=== PATIENT | female | born 1955 | race American Indian/Alaskan Native ===

== ENCOUNTER 2016-09-16 15:51 | Emergency (ER) | payer OTHER ==
[2016-09-16 16:59] VITALS: BP 187/94
[2016-09-16 17:32] LABS: Basophils % (Auto) 0.7 % (0.0-1.8); Eosinophils % (Auto) 1.2 % (0.0-4.3); Hematocrit 37.9 % (30.3-42.9); Hemoglobin 11.8 gm/dl (10.1-14.3); Mean Corpuscular HGB Conc 31 % (30-34); Mean Corpuscular Hemoglobin 26 pg (28-32); Mean Corpuscular Volume 84 fl (79-97); Platelet Count 196 K/mm3 (140-440); Red Blood Count 4.53 M/mm3 (3.65-5.03); Red Cell Distribution Width 14.9 % (13.2-15.2); White Blood Count 16.4 K/mm3 (4.5-11.0)
[2016-09-16 18:21] LABS: Bilirubin,Urine NEG (Negative); Blood,Urine NEG (Negative); Ketones,Urine NEG (Negative); Leukocyte Esterase,Urine LG (Negative); Mucus,Urine 3+ /HPF; Nitrite,Urine NEG (Negative); Protein,Urine <15 mg/dL mg/dL (Negative)
[2016-09-16 18:54] LABS: Albumin 3.6 g/dL (3.9-5); Albumin/Globulin Ratio 0.7 %; Alkaline Phosphatase 90 units/L (35-129); Bilirubin,Total 0.3 mg/dL (0.1-1.2); Blood Urea Nitrogen 12 mg/dL (7-17); Calcium 9.9 mg/dL (8.4-10.2); Carbon Dioxide 19 mmol/L (22-30); Chloride 98.8 mmol/L (98-107); Glucose 113 mg/dL (65-100); Lipase 105 units/L (13-60); Sodium 136 mmol/L (137-145); Total Protein 8.6 g/dL (6.3-8.2)
[2016-09-16 19:05] LABS: Alanine Aminotransferase 31 units/L (7-56); Anion Gap 23 mmol/L; Potassium 4.8 mmol/L (3.6-5.0)
--- NOTE | 2016-09-18 14:00 | ED Elopement Review ---
ED Pt Elopement review - Results review Lab results: Laboratory Tests 09/16/16 09/16/16 09/16/16 17:21 17:21 17:41 WBC 16.4 H RBC 4.53 Hgb 11.8 Hct 37.9 MCV 84 MCH 26 L MCHC 31 RDW 14.9 Plt Count 196 Lymph % (Auto) 27.2 [place] % (Auto) 6.8 Eos % (Auto) 1.2 Baso % (Auto) 0.7 Lymph # 4.5 [place] # 1.1 H Eos # 0.2 Baso # 0.1 Seg Neutrophils % 64.1 Seg Neutrophils # 10.5 H Sodium 136 L Potassium 4.8 Chloride 98.8 Carbon Dioxide 19 L Anion Gap 23 BUN 12 Creatinine 0.8 Estimated GFR > 60 BUN/Creatinine Ratio 15.00 Glucose 113 H Calcium 9.9 Total Bilirubin 0.3 AST 30 ALT 31 Alkaline Phosphatase 90 Total Protein 8.6 H Albumin 3.6 L Albumin/Globulin Ratio 0.7 Lipase 105 H Urine Color Yellow Urine Turbidity Cloudy Urine pH 5.0 Ur Specific [place] 1.027 Urine Protein <15 mg/dl Urine Glucose (UA) Neg Urine Ketones Neg Urine Blood Neg Urine Nitrite Neg Urine Bilirubin Neg Urine Urobilinogen 4.0 Ur Leukocyte Esterase Lg Urine WBC (Auto) 28.0 H Urine RBC (Auto) 7.0 U Epithel Cells (Auto) 4.0 Urine Mucus 3+ - Call Back decision Pt Call Back Decision: Pt to F/U with PMD (possible UTI, need antibiotics. May return here if no pmd)
== END 2016-09-17 00:15 | disposition left against medical advice (07) ==
LOC: ED 15:51
DX: M54.5 Low back pain (principal); M79.659 Pain in unspecified thigh; Z53.21 Procedure and treatment not carried out due to patient leaving prior to being seen by health care provider
CPT/HCPCS: 36415; 80053; 81001; 83690; 85025

== ENCOUNTER 2018-11-29 09:43 | Inpatient (IN) | payer OTHER ==
[2018-11-29] MEDS ORDERED: ASPIRIN PO ONE (09:52)
--- NOTE | 2018-11-29 10:17 | XRay Report ---
ROUTINE CHEST, TWO VIEWS: HISTORY: chest pain. The trachea, heart, mediastinal contour, lung cornelius and bony thorax are unremarkable. IMPRESSION: Unremarkable chest x-ray.
[2018-11-29] MEDS ORDERED: SUBLIMAZE IV ONE (10:26)
[2018-11-29] MEDS ORDERED: NITRO-BID 2% TP ONE (10:26)
[2018-11-29] MEDS ORDERED: ZOFRAN IV ONE (10:26)
--- NOTE | 2018-11-29 10:31 | Emergency Department Report ---
HPI - General Chief Complaint: Chest Pain Time Seen by Provider: 11/29/18 10:19 - HPI HPI: Room 18 The patient is a 63-year-old female presenting with a chief complaint of chest pain. Patient states her symptoms began last night with substernal chest pain radiating to the left axilla. Patient says she also had pain in the left arm. Patient states she became short of breath, diaphoretic and dizzy with the chest pain. Patient denies nausea or vomiting. The patient gives her pain score 6/10. She states her last stress test occurred approximately 3-4 years ago. The patient had a cardiac catheterization performed here in March 2014 that showed mild irregularities of the LAD Location: Chest Duration: Onset last night Quality: Sharp/burning Severity:6/10 Modifying factors: [see above] Context: [see above] Mode of transportation: [not driving] ED Past Medical Hx - Past Medical History Hx Hypertension: Yes - Surgical History Past Surgical History?: No - Family History Family history: no significant - Social History Smoking Status: Never Smoker Substance Use Type: None (denies illicit drug use) - Medications Home Medications: Home Medications Medication Instructions Recorded Confirmed Last Taken Type Amlodipine Besylate 10 mg PO DAILY 04/01/14 04/01/14 04/01/14 06:00 History 10mg Terbinafine (Nf) [LamiSIL] 250 mg PO DAILY 04/01/14 04/01/14 03/31/14 15:00 History 250mg hydroCHLOROthiazide 25 mg PO DAILY 04/01/14 04/01/14 04/01/14 06:00 History [Hydrochlorothiazide] 25mg ED Review of Systems ROS: Stated complaint: CHEST PAIN Other details as noted in HPI Constitutional: diaphoresis Eyes: denies: eye pain ENT: denies: throat pain Respiratory: shortness of breath Cardiovascular: chest pain Endocrine: no symptoms reported Gastrointestinal: denies: nausea, vomiting Genitourinary: denies: dysuria Musculoskeletal: denies: back pain Neurological: denies: headache Physical Exam - Physical Exam Vital Signs: Vital Signs 11/29/18 09:53 Temperature 97.8 F Pulse Rate 59 L Respiratory 16 Rate Blood Pressure 159/69 O2 Sat by Pulse 97 Oximetry Physical Exam: GENERAL: The patient is well-developed well-nourished female lying on stretcher not appearing to be in acute distress. [] HEENT: Normocephalic. Atraumatic. Extraocular motions are intact. Patient has moist mucous membranes. NECK: Supple. Trachea midline CHEST/LUNGS: Clear to auscultation. There is no respiratory distress noted. HEART/CARDIOVASCULAR: Regular. There is no tachycardia. There is no gallop rub or murmur. ABDOMEN: Abdomen is soft, nontender. Patient has normal bowel sounds. There is no abdominal distention. SKIN: There is no rash. There is no edema. There is no diaphoresis. NEURO: The patient is awake, alert, and oriented. The patient is cooperative. The patient has normal speech MUSCULOSKELETAL: There is no evidence of acute injury. ED Course Vital Signs 11/29/18 09:53 Temperature 97.8 F Pulse Rate 59 L Respiratory 16 Rate Blood Pressure 159/69 O2 Sat by Pulse 97 Oximetry ED Medical Decision Making - Lab Data Result diagrams: 11/29/18 10:53 11/29/18 10:53 Laboratory Tests 11/29/18 11/29/18 10:53 10:53 WBC 7.7 RBC 4.41 Hgb 12.4 Hct 37.9 MCV 86 MCH 28 MCHC 33 RDW 15.9 H Plt Count 188 Lymph % (Auto) 42.3 H [place] % (Auto) 13.3 H Eos % (Auto) 1.2 Baso % (Auto) 0.4 Lymph # 3.3 [place] # 1.0 H Eos # 0.1 Baso # 0.0 Seg Neutrophils % 42.8 Seg Neutrophils # 3.3 Sodium 140 Potassium 4.2 Chloride 101.3 Carbon Dioxide 28 Anion Gap 15 BUN 13 Creatinine 0.8 Estimated GFR > 60 BUN/Creatinine Ratio 16 Glucose 105 H Calcium 9.4 Troponin T < 0.010 - EKG Data -: EKG Interpreted by Me EKG shows normal: sinus rhythm Rate: normal - EKG Data When compared to previous EKG there are: no significant change Interpretation: unchanged when compared t (04/01/2014) - Radiology Data Radiology results: report reviewed (chest x-ray), image reviewed (chest x-ray) interpreted by me: Chest x-ray-no focal infiltrate, no pneumothorax [facility] [address] [place] [address] XRay Report Signed Patient: HCICO EDEN MR#: [id number] : 1955 Acct:[id number] Age/Sex: 63 / F ADM Date: 11/29/18 Loc: ED Attending Dr: Ordering Physician: CIRO CRUZ MD Date of Service: 11/29/18 Procedure(s): XR chest 1V ap Accession Number(s): [id number] cc: ED MD ANTHONY Fluoro Time In Minutes: ROUTINE CHEST, TWO VIEWS: HISTORY: chest pain. The trachea, heart, mediastinal contour, lung cornelius and bony thorax are unremarkable. IMPRESSION: Unremarkable chest x-ray. Transcribed By: TTR Dictated By: BK MARTINEZ JR, MD Electronically Authenticated By: BK MARTINEZ JR, MD Signed Date/Time: 11/29/18 1012 DD/ 1012 TD/TT: 11/29/18 1012 - Differential Diagnosis ACS, pericarditis, GERD Critical care attestation.: If time is entered above; I have spent that time in minutes in the direct care of this critically ill patient, excluding procedure time. ED Disposition Clinical Impression: Chest pain Disposition: OP ADMIT IP TO THIS HOSP Is pt being admited?: Yes Does the pt Need Aspirin: Yes Condition: Fair Instructions: Chest Pain (ED) Referrals: RYAN LESLIE MD [Primary Care Provider] - 3-5 Days Time of Disposition: 12:03 (hospitalist paged (Dr Kinsey))
[2018-11-29 11:17] LABS: Basophils % (Auto) 0.4 % (0.0-1.8); Eosinophils # (Auto) 0.1 K/mm3 (0.0-0.4); Eosinophils % (Auto) 1.2 % (0.0-4.3); Hematocrit 37.9 % (30.3-42.9); Hemoglobin 12.4 gm/dl (10.1-14.3); Lymphocytes # (Auto) 3.3 K/mm3 (1.2-5.4); Lymphocytes % (Auto) 42.3 % (13.4-35.0); Mean Corpuscular HGB Conc 33 % (30-34); Mean Corpuscular Volume 86 fl (79-97); Monocytes % (Auto) 13.3 % (0.0-7.3); Platelet Count 188 K/mm3 (140-440); Red Blood Count 4.41 M/mm3 (3.65-5.03); Red Cell Distribution Width 15.9 % (13.2-15.2)
[2018-11-29 11:41] LABS: BUN/Creatinine Ratio 16; Blood Urea Nitrogen 13 mg/dL (7-17); Calcium 9.4 mg/dL (8.4-10.2); Hemolysis Index 11
--- NOTE | 2018-11-29 21:59 | History and Physical Report ---
History of Present Illness Date of examination: 11/29/18 Date of admission: 11/29/18 12:05 Chief complaint: Left-sided chest pain since last night. History of present illness: 63-year-old female with history of hypertension comes in for retrosternal chest pain since last night. Chest pain is about 7 on a scale of 1-10. Sharp and intermittent. Also pain radiating to the left arm. Some diaphoresis present. And dizziness present. And shortness of breath present. No palpitations. Patient had stress test 4 years ago. Also had a cardiac cath In March 2014 in this facility. No exacerbating or relieving factors. Patient does not smoke. Past Medical History Hypertension: Yes Surgical History Past Surgical History?: No Family History Htn Social History Smoking Status: Never Smoker Substance Use Type: None (denies illicit drug use) Medications Home Medications: Home Medications Medication Instructions Recorded Confirmed Last Taken Type Amlodipine Besylate 10 mg PO DAILY 04/01/14 04/01/14 04/01/14 06:00 History 10mg Terbinafine (Nf) [LamiSIL] 250 mg PO DAILY 04/01/14 04/01/14 03/31/14 15:00 History 250mg hydroCHLOROthiazide 25 mg PO DAILY 04/01/14 04/01/14 04/01/14 06:00 History [Hydrochlorothiazide] 25mg Review of Systems ROS: Stated complaint: CHEST PAIN Other details as noted in HPI Constitutional: diaphoresis Eyes: denies: eye pain ENT: denies: throat pain Respiratory: shortness of breath Cardiovascular: chest pain Endocrine: no symptoms reported Gastrointestinal: denies: nausea, vomiting Genitourinary: denies: dysuria Musculoskeletal: denies: back pain Neurological: denies: headache Medications and Allergies Allergies Allergy/AdvReac Type Severity Reaction Status Date / Time No Known Allergies Allergy Verified 11/29/18 12:58 Home Medications Medication Instructions Recorded Confirmed Last Taken Type Olmesartan/Hydrochlorothiazide 40 mg PO ONCE 11/29/18 11/29/18 Unknown History [Olmesartan-Hctz 40-25 mg Tab] amLODIPine [Norvasc] 10 mg PO DAILY 11/29/18 11/29/18 11/29/18 History Exam - Constitutional Vitals: Temp Pulse Resp BP Pulse Ox 97.9 F 62 16 131/65 94 11/29/18 19:37 11/29/18 19:37 11/29/18 19:37 11/29/18 19:37 11/29/18 19:37 General appearance: Present: no acute distress, well-nourished - EENT Eyes: Present: PERRL ENT: hearing intact, clear oral mucosa - Neck Neck: Present: supple, normal ROM - Respiratory Respiratory effort: normal Respiratory: bilateral: CTA - Cardiovascular Heart rate: 78 Rhythm: regular Heart Sounds: Present: S1 & S2. Absent: rub, click - Extremities Extremities: pulses symmetrical, No edema Peripheral Pulses: within normal limits - Abdominal General gastrointestinal: Present: soft, non-tender, non-distended, normal bowel sounds Female genitourinary: Present: normal - Rectal Rectal Exam: deferred - Integumentary Integumentary: Present: clear, warm, dry - Musculoskeletal Musculoskeletal: gait normal, strength equal bilaterally - Psychiatric Psychiatric: appropriate mood/affect, intact judgment & insight - Neurologic Neurologic: CNII-XII intact, moves all extremities - Allied Health Allied health notes reviewed: nursing, case management Results - Labs CBC & Chem 7: 11/29/18 10:53 11/29/18 10:53 Labs: Laboratory Last Values WBC 7.7 K/mm3 (4.5-11.0) 11/29/18 10:53 RBC 4.41 M/mm3 (3.65-5.03) 11/29/18 10:53 Hgb 12.4 gm/dl (10.1-14.3) 11/29/18 10:53 Hct 37.9 % (30.3-42.9) 11/29/18 10:53 MCV 86 fl (79-97) 11/29/18 10:53 MCH 28 pg (28-32) 11/29/18 10:53 MCHC 33 % (30-34) 11/29/18 10:53 RDW 15.9 % (13.2-15.2) H 11/29/18 10:53 Plt Count 188 K/mm3 (140-440) 11/29/18 10:53 Lymph % (Auto) 42.3 % (13.4-35.0) H 11/29/18 10:53 [place] % (Auto) 13.3 % (0.0-7.3) H 11/29/18 10:53 Eos % (Auto) 1.2 % (0.0-4.3) 11/29/18 10:53 Baso % (Auto) 0.4 % (0.0-1.8) 11/29/18 10:53 Lymph # 3.3 K/mm3 (1.2-5.4) 11/29/18 10:53 [place] # 1.0 K/mm3 (0.0-0.8) H 11/29/18 10:53 Eos # 0.1 K/mm3 (0.0-0.4) 11/29/18 10:53 Baso # 0.0 K/mm3 (0.0-0.1) 11/29/18 10:53 Seg Neutrophils % 42.8 % (40.0-70.0) 11/29/18 10:53 Seg Neutrophils # 3.3 K/mm3 (1.8-7.7) 11/29/18 10:53 Sodium 140 mmol/L (137-145) 11/29/18 10:53 Potassium 4.2 mmol/L (3.6-5.0) 11/29/18 10:53 Chloride 101.3 mmol/L (98-107) 11/29/18 10:53 Carbon Dioxide 28 mmol/L (22-30) 11/29/18 10:53 15 mmol/L 11/29/18 10:53 BUN 13 mg/dL (7-17) 11/29/18 10:53 0.8 mg/dL (0.7-1.2) 11/29/18 10:53 Estimated GFR > 60 ml/min 11/29/18 10:53 16 % 11/29/18 10:53 Glucose 105 mg/dL (65-100) H 11/29/18 10:53 Calcium 9.4 mg/dL (8.4-10.2) 11/29/18 10:53 < 0.010 ng/mL (0.00-0.029) 11/29/18 15:20 Short CBC 11/29/18 Range/Units 10:53 WBC 7.7 (4.5-11.0) K/mm3 Hgb 12.4 (10.1-14.3) gm/dl Hct 37.9 (30.3-42.9) % Plt Count 188 (140-440) K/mm3 BMP 11/29/18 10:53 Sodium 140 Potassium 4.2 Chloride 101.3 Carbon Dioxide 28 BUN 13 Creatinine 0.8 Glucose 105 H Calcium 9.4 Cardiac Enzymes 11/29/18 11/29/18 11/29/18 Range/Units 10:53 12:49 15:20 Troponin T < 0.010 < 0.010 < 0.010 (0.00-0.029) ng/mL - Imaging and Cardiology EKG: report reviewed (sinus bradycardia heart rate of 50/m LVH with repolarization abnormalities EKG interpreted by me) Chest x-ray: report reviewed (no acute findings) Assessment and Plan Advance Directives: Yes (full code) VTE prophylaxis?: Chemical Plan of care discussed with patient/family: Yes - Patient Problems (1) Chest pain Current Visit: Yes Status: Acute Qualifiers: Chest pain type: unspecified Qualified Code(s): R07.9 - Chest pain, unspecified Plan to address problem: Chest pain rule out HI protocol Serial troponins Lexiscan the morning Patient has some chest wall tenderness consistent with costochondritis (2) Costochondritis, acute Current Visit: Yes Status: Acute Plan to address problem: Patient initiated on meloxicam 7.5 twice a day Patient has chest wall tenderness (3) Hypertension Current Visit: Yes Status: Chronic Qualifiers: Hypertension type: essential hypertension Qualified Code(s): I10 - Essential (primary) hypertension Plan to address problem: Continue antihypertensives (4) DVT prophylaxis Current Visit: Yes Status: Acute Plan to address problem: On Lovenox and GI prophylaxis
[2018-11-29] MEDS ORDERED: ZOFRAN IV PRN (22:02)
[2018-11-29] MEDS ORDERED: TYLENOL PO PRN (22:02)
[2018-11-29] MEDS ORDERED: PERCOCET 5/325 PO PRN (22:02)
[2018-11-29] MEDS ORDERED: SODIUM CHLORIDE FLUSH SYRINGE 10 ML IV PRN (22:02)
[2018-11-29] MEDS ORDERED: DILAUDID IV PRN (22:02)
[2018-11-29] MEDS: MOBIC PO SCH (22:54)
[2018-11-30 07:01] LABS: Alanine Aminotransferase 19 units/L (7-56); Albumin 3.7 g/dL (3.9-5); BUN/Creatinine Ratio 16; Blood Urea Nitrogen 16 mg/dL (7-17); Calcium 9.2 mg/dL (8.4-10.2); Hemolysis Index 5
[2018-11-30] MEDS ORDERED: LEXISCAN IV ONE ×2 (08:01)
[2018-11-30] MEDS ORDERED: SODIUM CHLORIDE FLUSH SYRINGE 10 ML IV SCH (10:00)
[2018-11-30] MEDS: MOBIC PO SCH (10:31)
--- NOTE | 2018-11-30 11:20 | Discharge Summary ---
Providers - Providers Date of Admission: 11/29/18 12:05 Date of discharge: 11/30/18 Attending physician: CHRISTOPHER GALLARDO [facility] Condition: Stable Hospital course: Patient is a 63 yo woman with a history of hypertension who presented with Chest pains. Troponin negative x 3 (1) Chest pain Current Visit: Yes Status: Acute Qualifiers: Chest pain type: unspecified Qualified Code(s): R07.9 - Chest pain, unspecified Plan to address problem: Chest pain rule out OH protocol Serial troponins Lexiscan the morning Patient has some chest wall tenderness consistent with costochondritis (2) Costochondritis, acute Current Visit: Yes Status: Acute Plan to address problem: Patient initiated on meloxicam 7.5 twice a day Patient has chest wall tenderness (3) Hypertension Current Visit: Yes Status: Chronic Qualifiers: Hypertension type: essential hypertension Qualified Code(s): I10 - Essential (primary) hypertension Plan to address problem: Continue antihypertensives (4) DVT prophylaxis Current Visit: Yes Status: Acute Plan to address problem: On Lovenox and GI prophylaxis Disposition: DC- TO HOME OR SELFCARE Time spent for discharge: 34 minutes Core Measure Documentation - Palliative Care Palliative Care/ Comfort Measures: Not Applicable - Core Measures Any of the following diagnoses?: none - VTE Discharge Requirements Deep Vein Thrombosis/Pulmonary Embolism Present on Admission: No Has pt received <5 days of overlap therapy or INR<2.0: No Anticoagulant overlap therapy prescribed at discharge: No Contraindication No Overlap Therapy order at DC: Not Indicated Exam - Physical Exam Narrative exam: Gen: WDWN, NAD, Awake, Alert, Orientated HEENT: NCAT, EOMI, PERRL, OP Clear Neck: supple, no adenopathy, no thyromegaly, no JVD CVS/Heart: RRR, normal S1S2, pulses present bilaterally Chest/Lungs: CTA B, Symmetrical chest expansion, good air entry bilaterally, reproducible substernal chest wall tenderness, she jumps GI/Abdomen: soft, NTND, good bowel sounds, no guarding or rebound /Bladder: no suprapubic tenderness, no CVA or paraspinal tenderness Extermity/Skin: no c/c/e, no obvious rash MSK: FROM x 4 Neuro: CN 2-12 grossly intact, no new focal deficits Psych: calm - Constitutional Vitals: Temp Pulse Resp BP Pulse Ox 97.7 F 51 L 18 182/68 99 11/30/18 09:32 11/30/18 10:00 11/30/18 10:00 11/30/18 09:32 11/30/18 10:00 Plan Activity: other (no strenous activity unless cleared by PCP) Diet: low salt Follow up with: RYAN LESLIE MD [Primary Care Provider] - 3-5 Days
[2018-11-30] MEDS ORDERED: HYDROCHLOROTHIAZIDE PO SCH (11:30)
[2018-11-30] MEDS ORDERED: OLMESARTAN PO SCH (11:30)
[2018-11-30] MEDS ORDERED: COZAAR PO SCH (12:00)
[2018-11-30] MEDS ORDERED: HCTZ PO SCH (12:00)
[2018-11-30 12:06] VITALS: BP 148/61
--- NOTE | 2018-11-30 22:59 | Treadmill Report ---
INDICATION: Chest pain. ORDERING PHYSICIAN: Caity Kinsey MD FINDINGS: There is no scintigraphic evidence of myocardial ischemia. The left ventricular cavity is mildly dilated. There is mild global left ventricular hypokinesis. The left ventricular ejection fraction is measured at 48%. CONCLUSION: 1. Normal perfusion scan with no scintigraphic evidence of myocardial ischemia. 2. Mildly dilated left ventricular cavity with mild left ventricular systolic dysfunction. JOB# [id number] JULIA/JOHN
[2018-12-01] MEDS ORDERED: PROCARDIA XL PO SCH (10:00)
[2018-12-01] MEDS ORDERED: NIFEDIPINE 60 MG PO SCH (10:00)
== END 2018-11-30 14:00 | disposition home or self-care (01) | DRG 206 ==
LOC: ED 09:43 → 4A 12:05
PROVIDERS: ADMIT Internal Medicine; ATTEND Internal Medicine
DX: M94.0 Chondrocostal junction syndrome [Tietze] (principal); I10 Essential (primary) hypertension; Z82.49 Family history of ischemic heart disease and other diseases of the circulatory system; Z79.899 Other long term (current) drug therapy
CPT/HCPCS: 36415; 71045; 78452; 80048; 80053; 83036; 84484; 85025; 93005; 93010; 93017; G0378; A9502; J2405; J2785; J3010